=== PATIENT | male | born 1975 | race Caucasian/White ===

== ENCOUNTER 2016-04-22 15:50 | Emergency (ER) | payer OTHER ==
[2016-04-22] MEDS ORDERED: NS 1,000 ML IV ONE ×2 (16:03)
--- NOTE | 2016-04-22 16:05 | EDPHY ---
H & P Stated Complaint: diarrhea x 3 days, general malaise, chills Time Seen by Provider: 04/22/16 16:03 HPI/ROS: CHIEF COMPLAINT: Diarrhea, fever, malaise HISTORY OF PRESENT ILLNESS: The patient presents to emergency department with 3 days of diarrhea, fever and malaise. The patient denies recent travel outside the [place]. The patient denies recent antibiotic use. The patient did have some [place] meet several days ago. The patient has no prior history of significant abdominal pathology. The patient does have a prior history of appendectomy. The patient complains of moderate diffuse abdominal cramping, sensation of intractable thirst as well as a reported history of multiple episodes of nonbloody diarrhea today. REVIEW OF SYSTEMS: A comprehensive 10 point review of systems is otherwise negative aside from elements mentioned in the history of present illness. Source: Patient - Personal History Current Tetanus/Diphtheria Vaccine: Unsure Current Tetanus Diphtheria and Acellular Pertussis (TDAP): Unsure Tetanus Vaccine Date: 2007 - Medical/Surgical History Hx Asthma: Yes Hx Chronic Respiratory Disease: No Hx Diabetes: No Hx Cardiac Disease: No Hx Renal Disease: No Hx Cirrhosis: No Hx Alcoholism: No Hx HIV/AIDS: No Hx Splenectomy or Spleen Trauma: No Other PMH: asthma - Social History Smoking Status: Never smoked - Physical Exam Exam: General Appearance: Alert, mild discomfort Eyes: Pupils equal and round no pallor or injection ENT, Mouth: Mucous membranes moist Respiratory: There are no retractions, lungs are clear to auscultation Cardiovascular: Tachycardic Gastrointestinal: Generalized abdominal tenderness, hyperactive bowel sounds, no peritonitis Neurological: A&O, normal motor function, normal sensory exam, normal cranial nerves Skin: Warm and dry, no rashes Musculoskeletal: Neck is supple nontender Extremities: symmetrical, full range of motion Constitutional: Initial Vital Signs Temperature (C) 38.4 C H 04/22/16 16:00 Heart Rate 94 04/22/16 16:00 Respiratory Rate 20 04/22/16 16:00 Blood Pressure 138/80 H 04/22/16 16:00 O2 Sat (%) 95 04/22/16 16:00 O2 Delivery Mode Room Air Allergies/Adverse Reactions: No Known Allergies Allergy (Unverified 07/27/10 00:51) Home Medications: Medication Instructions Recorded Budesonide [Pulmicort 0.5MG/2Ml 1 mg NASAL DAILY 11/08/15 Neb] Montelukast Sodium [Singulair 10 10 mg PO HS 02/02/15 mg (*)] Ondansetron Odt [Zofran Odt] 4 mg PO Q4PRN PRN #20 tab 04/22/16 Medical Decision Making ED Course/Re-evaluation: The patient presents to the ED with severe diarrhea and fever for the past several days. The patient was noted to be clinically dehydrated upon arrival. I find his abdominal examination to be benign. The patient has an unremarkable CBC and normal serum chemistries with electrolytes. The patient did receive IV fluid rehydration in the emergency department. Given his fever, stool analysis PCR was sent, the results of this study do demonstrate rotavirus. The patient had serial examinations in the ED by myself. He had no improvement of his symptoms. He is now tolerating sylvester jason without significant pain. His vital signs have improved. The patient will be discharged home with instructions to continue supportive care for infectious diarrhea. He is given customary return precautions. Differential Diagnosis: Differential diagnosis considered includes viral gastroenteritis, bacterial dysentery, colitis, appendicitis - Data Points Laboratory Results: Laboratory Results 04/22/16 15:54 04/22/16 15:54 04/22/16 15:54 WBC 4.24 10^3/uL (3.80-9.50) RBC 5.23 10^6/uL (4.40-6.38) Hgb 17.1 g/dL (13.7-17.5) Hct 46.8 % (40.0-51.0) MCV 89.5 fL (81.5-99.8) MCH 32.7 pg (27.9-34.1) MCHC 36.5 g/dL (32.4-36.7) RDW 11.7 % (11.5-15.2) Plt Count 139 L 10^3/uL (150-400) MPV 9.4 fL (8.7-11.7) Neut % (Auto) 88.9 H % (39.3-74.2) Lymph % (Auto) 7.8 L % (15.0-45.0) [place] % (Auto) 1.4 L % (4.5-13.0) Eos % (Auto) 1.2 % (0.6-7.6) Baso % (Auto) 0.5 % (0.3-1.7) Nucleat RBC Rel Count 0.0 % (0.0-0.2) Absolute Neuts (auto) 3.77 10^3/uL (1.70-6.50) Absolute Lymphs (auto) 0.33 L 10^3/uL (1.00-3.00) Absolute Monos (auto) 0.06 L 10^3/uL (0.30-0.80) Absolute Eos (auto) 0.05 10^3/uL (0.03-0.40) Absolute Basos (auto) 0.02 10^3/uL (0.02-0.10) Absolute Nucleated RBC 0.00 10^3/uL (0-0.01) Immature Gran % 0.2 % (0.0-1.1) Immature Gran # 0.01 10^3/uL (0.00-0.10) Sodium 140 mEq/L (134-144) Potassium 3.8 mEq/L (3.5-5.2) Chloride 102 mEq/L (97-110) Carbon Dioxide 24 mEq/l (22-31) Anion Gap 14 mEq/L (8-16) BUN 9 mg/dL (7-23) Creatinine 1.0 mg/dL (0.7-1.3) Estimated GFR > 60 Glucose 130 H mg/dL (70-100) Calcium 8.6 mg/dL (8.5-10.4) Total Bilirubin 1.0 mg/dL (0.1-1.4) Conjugated Bilirubin 0.3 mg/dL (0.0-0.5) Unconjugated Bilirubin 0.7 mg/dL (0.0-1.1) AST 62 H IU/L (17-59) ALT 64 IU/L (21-72) Alkaline Phosphatase 72 IU/L (38-126) Total Protein 6.6 g/dL (6.3-8.2) Albumin 3.9 g/dL (3.5-5.0) Lipase 52.0 IU/L (23-300) Microbiology Results: MICROBIOLOGY 04/22/16 16:12 Stool Gastrointestinal Tract Panel (PCR) - Final Rotavirus A Medications Given: Discontinued Medications Acetaminophen (Tylenol) 1,000 mg PO EDNOW ONE Stop: 04/22/16 16:48 Last Admin: 04/22/16 16:56 Dose: 1,000 mg Sodium Chloride (Ns) 1,000 mls @ 0 mls/hr IV ONCE ONE PRN Reason: Wide Open Stop: 04/22/16 16:04 Last Admin: 04/22/16 16:06 Dose: 1,000 mls Sodium Chloride (Ns) 1,000 mls @ 0 mls/hr IV ONCE ONE PRN Reason: Wide Open Stop: 04/22/16 16:04 Last Admin: 04/22/16 16:08 Dose: 1,000 mls Departure - Departure Disposition: Home, Routine, Self-Care Clinical Impression: Dehydration, Rotavirus enteritis Diarrhea Qualifiers: Diarrhea type: infectious Qualifier Code: (A09) Infectious gastroenteritis and colitis, unspecified Condition: Good Instructions: Dehydration (ED), Acute Diarrhea (ED) Additional Instructions: 1. Return to the ED for severe pain, vomiting, worsening symptoms or other concerns. 2. Take Imodium as directed for control of your diarrhea. 3. Please follow up with your primary care provider as needed. 4. Zofran as needed for nausea. Referrals: Jordon Setvens MD [Primary Care Provider] - As per Instructions
[2016-04-22 16:27] LABS: % IMMATURE GRANULYOCYTES 0.2 % (0.0-1.1); ABSOLUTE IMMATURE GRANULOCYTES 0.01 10^3/uL (0.00-0.10); ADD DIFF? NO; ADD MORPH? NO; ADD SCAN? NO; ATYPICAL LYMPHOCYTE FLAG 20 (0-99); FRAGMENT RBC FLAG 0 (0-99); HEMATOCRIT 46.8 % (40.0-51.0); HEMOGLOBIN 17.1 g/dL (13.7-17.5); LEFT SHIFT FLG 70 (0-99); LIPEMIA HEMOLYSIS FLAG 90 (0-99); MEAN CELL HEMOGLOBIN 32.7 pg (27.9-34.1); MEAN CELL HEMOGLOBIN CONCENTR. 36.5 g/dL (32.4-36.7); MEAN CELL VOLUME 89.5 fL (81.5-99.8); MEAN PLATELET VOLUME 9.4 fL (8.7-11.7); PLATELET CLUMPS FLAG 0 (0-99); PLATELET COUNT 139 10^3/uL (150-400); RED BLOOD CELL COUNT 5.23 10^6/uL (4.40-6.38); RED CELL DISTRIBUTION WIDTH 11.7 % (11.5-15.2)
[2016-04-22 16:40] LABS: ALANINE AMINOTRANSFERASE 64 IU/L (21-72); ALBUMIN 3.9 g/dL (3.5-5.0); ALKALINE PHOSPHATASE 72 IU/L (38-126); ANION GAP 14 mEq/L (8-16); ASPARTATE AMINOTRANSFERASE 62 IU/L (17-59); BILIRUBIN-CONJUGATED 0.3 mg/dL (0.0-0.5); BILIRUBIN-UNCONJUGATED 0.7 mg/dL (0.0-1.1); CALCIUM 8.6 mg/dL (8.5-10.4); CARBON DIOXIDE 24 mEq/l (22-31); CHLORIDE 102 mEq/L (97-110); GLOMERULAR FILTRATION RATE > 60; GLUCOSE 130 mg/dL (70-100); POTASSIUM 3.8 mEq/L (3.5-5.2); SODIUM 140 mEq/L (134-144); TOTAL PROTEIN 6.6 g/dL (6.3-8.2)
[2016-04-22] MEDS ORDERED: ACETAMINOPHEN 500 MG TAB PO ONE (16:47)
[2016-04-22] MEDS ORDERED: ACETAMINOPHEN 500 MG TAB ONE (16:48)
[2016-04-22 19:31] VITALS: BP 109/57; PULSE 92; RESP 16; TEMP 99; O2SAT 95
== END 2016-04-22 20:10 | disposition home or self-care (01) ==
LOC: EDUNIT#
DX: A08.0 Rotaviral enteritis (principal); J45.909 Unspecified asthma, uncomplicated